=== PATIENT | male | born 1960 | race Caucasian/White ===

== ENCOUNTER 2018-01-19 12:29 | Emergency (ER) | payer MEDICARE, OTHER ==
[2018-01-19 15:25] VITALS: BP 111/71
== END 2018-01-19 15:28 | disposition home or self-care (01) ==
LOC: ED 15:22
DX: R42 Dizziness and giddiness (principal)
CPT/HCPCS: 70450; 99284

== ENCOUNTER 2018-02-06 13:48 | Emergency (ER) | payer MEDICARE ==
[~2018-02-06] VITALS: Ht 152.4 cm; Wt 65.1 kg
[2018-02-06 14:55] LABS: ALBUMIN 3.5 g/dL (3.4-5.0); ANION GAP 9 mmol/L (5-15); CALCIUM 9.1 mg/dL (8.5-10.1); CHLORIDE 106 mmol/L (98-107); CREATININE 1.02 mg/dL (0.7-1.3)
[2018-02-06 15:11] LABS: BASOPHILS # (AUTO) 0.04 x10^3/uL (0-0.1); BASOPHILS % (AUTO) 1 % (0-1); EOSINOPHILS # (AUTO) 0.05 x10^3/uL (0-0.4); EOSINOPHILS % (AUTO) 1 % (1-7); LYMPHOCYTES # (AUTO) 3.07 x10^3/uL (1-3.4); LYMPHOCYTES % (AUTO) 35 % (22-44); MD NO; MEAN CORPUSCULAR HEMOGLOBIN 31.1 pg (27.5-34.5); MEAN CORPUSCULAR HGB CONC 34.5 g/dL (33.2-36.2); MEAN CORPUSCULAR VOLUME 90.2 fL (81-97); MEAN PLATELET VOLUME 8.4 fL (7.4-10.4); MONOCYTES # (AUTO) 0.59 x10^3/uL (0.2-0.8); MONOCYTES % (AUTO) 7 % (2-9); NEUTROPHILS # (AUTO) 5.16 x10^3/uL (1.8-6.8); NEUTROPHILS % (AUTO) 58 % (42-75); PLATELET COUNT 233 x10^3/uL (130-400); RED BLOOD COUNT 5.04 x10^6/uL (4.38-5.82)
[2018-02-06 15:50] VITALS: BP 119/71
== END 2018-02-06 15:52 | disposition home or self-care (01) ==
LOC: ED 15:39
DX: R53.1 Weakness (principal); Z00.01 Encounter for general adult medical examination with abnormal findings; G40.909 Epilepsy, unspecified, not intractable, without status epilepticus; Z86.73 Personal history of transient ischemic attack (TIA), and cerebral infarction without residual deficits; W19.XXXA Unspecified fall, initial encounter; Y93.89 Activity, other specified; Y99.0 Civilian activity done for income or pay; Y92.69 Other specified industrial and construction area as the place of occurrence of the external cause
CPT/HCPCS: 36415; 80048; 82040; 85025; 93005; 99285

== ENCOUNTER 2018-05-04 09:11 | Emergency (ER) | payer MEDICARE ==
[~2018-05-04] VITALS: Ht 157.5 cm; Wt 66.0 kg
[2018-05-04] MEDS ORDERED: ASPI-621 PO (09:46)
[2018-05-04] MEDS ORDERED: CALC-451 PO (09:47)
[2018-05-04] MEDS ORDERED: DIFL5DRO EACHEYE (09:48)
[2018-05-04] MEDS ORDERED: MULT-516 PO (09:49)
[2018-05-04] MEDS ORDERED: LACO200T PO (09:49)
[2018-05-04] MEDS ORDERED: ACET325T14 PO (09:50)
[2018-05-04] MEDS ORDERED: LORA1TAB PO (09:51)
[2018-05-04] MEDS ORDERED: PSEU30TA24 PO (09:52)
[2018-05-04] MEDS ORDERED: GUAI100L6 PO (09:53)
[2018-05-04] MEDS ORDERED: VIT1CAPS42 PO (09:57)
[2018-05-04] MEDS ORDERED: LEVE500T13 PO (09:57)
[2018-05-04] MEDS ORDERED: CA C1TAB29 PO (09:58)
[2018-05-04] MEDS ORDERED: LACO100T PO (09:59)
[2018-05-04 10:40] VITALS: BP 103/65
== END 2018-05-04 10:43 | disposition home or self-care (01) ==
LOC: ED 10:16
DX: S40.011A Contusion of right shoulder, initial encounter (principal); S20.211A Contusion of right front wall of thorax, initial encounter; G40.909 Epilepsy, unspecified, not intractable, without status epilepticus; Z86.73 Personal history of transient ischemic attack (TIA), and cerebral infarction without residual deficits; Z98.890 Other specified postprocedural states; W06.XXXA Fall from bed, initial encounter; Y93.89 Activity, other specified; Y92.092 Bedroom in other non-institutional residence as the place of occurrence of the external cause; Y99.8 Other external cause status
CPT/HCPCS: 71046; 99284

== ENCOUNTER 2018-06-28 10:52 | Inpatient (IN) | payer MEDICARE ==
[~2018-06-28] VITALS: Ht 149.9 cm; Wt 69.8 kg
[~2018-06-28 10:52] MED LIST: ACET325T14 PO; ASPI81TA45 PO; CA C1TAB29 PO; CALC-451 PO; DIFL5DRO EACHEYE; GUAI100L6 PO; LACO100T PO; LACO200T PO; LEVE500T13 PO; LORA1TAB PO; MULT-516 PO; PSEU30TA24 PO; VIT1CAPS42 PO
--- NOTE | 2018-06-28 11:29 | NUR ---
EKG ORDERED D/T POTENTIAL SYNCOPE. BP CUFF, PULSE OX IN PLACE. PT A/O TO NORM PER CAREGIVER. PT UNDRESSED, PLACED IN GOWN. NO WOUNDS OR INJURIES OBSERVED TO BODY.
--- NOTE | 2018-06-28 12:13 | NUR ---
DR YING IN TO SEE PT. AWAITING CT. CAREGIVERS AT BS. VSS/UPDATED IN COMPUTER.
[2018-06-28 12:37] LABS: BASOPHILS # (AUTO) 0.09 x10^3/uL (0-0.1); BASOPHILS % (AUTO) 1 % (0-1); EOSINOPHILS # (AUTO) 0.05 x10^3/uL (0-0.4); EOSINOPHILS % (AUTO) 0 % (1-7); LYMPHOCYTES # (AUTO) 2.44 x10^3/uL (1-3.4); LYMPHOCYTES % (AUTO) 23 % (22-44); MD NO; MEAN CORPUSCULAR VOLUME 91.1 fL (81-97); MEAN PLATELET VOLUME 8.2 fL (7.4-10.4); MONOCYTES # (AUTO) 0.73 x10^3/uL (0.2-0.8); MONOCYTES % (AUTO) 7 % (2-9); NEUTROPHILS # (AUTO) 7.38 x10^3/uL (1.8-6.8); NEUTROPHILS % (AUTO) 69 % (42-75); PLATELET COUNT 248 x10^3/uL (130-400); RED BLOOD COUNT 4.98 x10^6/uL (4.38-5.82); RED CELL DISTRIBUTION WIDTH 13.5 % (9.4-14.8)
[2018-06-28 12:47] LABS: INTERNATIONAL NORMALIZED RATIO 1.02 (0.93-1.1); PROTHROMBIN TIME 10.8 Seconds (9.6-11.5)
[2018-06-28 12:50] LABS: ALBUMIN 3.4 g/dL (3.4-5.0); ANION GAP 8 mmol/L (5-15); CALCIUM 8.7 mg/dL (8.5-10.1); CHLORIDE 115 mmol/L (98-107)
[2018-06-28 12:51] LABS: CREATININE 0.67 mg/dL (0.7-1.3)
--- NOTE | 2018-06-28 14:03 | NUR ---
AWAITING CT SPINE READ. PT IN NAD, CAREGIVERS AT BS.
--- NOTE | 2018-06-28 14:26 | NUR ---
ALL RESULTS BACK, PT FOR RECHECK.
--- NOTE | 2018-06-28 15:38 | NUR ---
CONTINUE TO AWAIT RECHECK BY ERP.
--- NOTE | 2018-06-28 16:02 | NUR ---
CONFER WITH ERP ON ADMIT ORDER. THROUGHPUT NOTIFIED OF ADMIT. CAREGIVERS AND PT UPDATED ON ADMIT AND POC. PT TO STAY NPO UNTIL DR PRATT CONSULT. CAREGIVERS PROVIDED NUMBERS FOR CONSENT OR FURTHER INFORMATION. CAREGIVER: KATIA DAIGLE [phone] BROTHER AND POA: [phone]
--- NOTE | 2018-06-28 16:08 | NUR ---
HEARING AID TAKEN HOME BY CAREGIVER.
--- NOTE | 2018-06-28 16:47 | NUR ---
PT IS SLEEPING VSS UPDATED PT IS WAITING FOR RM ASSIGN
[2018-06-28] MEDS ORDERED: LABETALOL 5MG/ML, 20ML IVPush PRN (17:30)
[2018-06-28] MEDS ORDERED: ONDANSETRON 2MG/ML, 2ML IVPush PRN (17:30)
[2018-06-28] MEDS ORDERED: ONDANSETRON ODT 4 MG PO PRN (17:30)
--- NOTE | 2018-06-28 17:30 | NUR ---
[facility] IN TO SEE PT.
[2018-06-28] MEDS ORDERED: SODIUM CHLORIDE FLUSH 10ML SYR IVF PRN (18:00)
[2018-06-28 18:18] LABS: FREE T4 (FREE THYROXINE) 0.88 ng/dL (0.76-1.46); THYROID STIMULATING HORMONE 2.69 mIU/L (0.358-3.740)
--- NOTE | 2018-06-28 18:26 | NUR ---
IV SL PLACED FOR ADMISSION. REPORT TO ZULMA RN, PT READY FOR TRANSPORT.
[2018-06-28 18:34] LABS: HCT (SEDRATE) 45.3 % (39.2-51.8)
[2018-06-28 19:02] VITALS: BP 113/71
[2018-06-28] MEDS: D5%-0.45% NACL 1,000 ML IV SCH (20:14)
[2018-06-28] MEDS: LACOSAMIDE 100 MG PO SCH (21:00)
[2018-06-28] MEDS: LEVETIRACETAM 500 MG TABLET PO SCH (21:00)
[2018-06-29 00:59] VITALS: BP 100/69
[2018-06-29 05:54] LABS: BASOPHILS # (AUTO) 0.05 x10^3/uL (0-0.1); BASOPHILS % (AUTO) 1 % (0-1); EOSINOPHILS # (AUTO) 0.25 x10^3/uL (0-0.4); EOSINOPHILS % (AUTO) 3 % (1-7); LYMPHOCYTES # (AUTO) 2.78 x10^3/uL (1-3.4); LYMPHOCYTES % (AUTO) 34 % (22-44); MD NO; MEAN CORPUSCULAR HEMOGLOBIN 31.1 pg (27.5-34.5); MEAN CORPUSCULAR HGB CONC 33.9 g/dL (33.2-36.2); MEAN CORPUSCULAR VOLUME 91.7 fL (81-97); MEAN PLATELET VOLUME 8.2 fL (7.4-10.4); MONOCYTES # (AUTO) 0.54 x10^3/uL (0.2-0.8); MONOCYTES % (AUTO) 7 % (2-9); NEUTROPHILS # (AUTO) 4.52 x10^3/uL (1.8-6.8); NEUTROPHILS % (AUTO) 56 % (42-75); PLATELET COUNT 222 x10^3/uL (130-400); RED BLOOD COUNT 4.88 x10^6/uL (4.38-5.82); RED CELL DISTRIBUTION WIDTH 13.7 % (9.4-14.8)
[2018-06-29 07:20] LABS: CHLORIDE 115 mmol/L (98-107)
[2018-06-29 07:35] LABS: ALANINE AMINOTRANSFERASE 20 U/L (12-78); ALBUMIN 2.9 g/dL (3.4-5.0); ALKALINE PHOSPHATASE 166 U/L (45-117); ANION GAP 7 mmol/L (5-15); BILIRUBIN,TOTAL 0.6 mg/dL (0.2-1.0); CALCIUM 8.4 mg/dL (8.5-10.1); CREATININE 0.66 mg/dL (0.7-1.3); TOTAL PROTEIN 5.9 g/dL (6.4-8.2)
[2018-06-29] MEDS: LEVETIRACETAM 500 MG TABLET PO SCH ×2 (08:13→21:07)
[2018-06-29] MEDS: CALCIUM/VITAMIN D3 250-125 TABLET PO SCH (08:13)
[2018-06-29] MEDS: SENNA/DOCUSATE TABLET PO SCH (08:14)
[2018-06-29 08:20] VITALS: BP 146/67
[2018-06-29] MEDS: D5%-0.45% NACL 1,000 ML IV SCH ×2 (08:33→23:34)
[2018-06-29 08:50] VITALS: BP 115/69
[2018-06-29 14:50] VITALS: BP 110/76
[2018-06-29 19:06] VITALS: BP 120/75
[2018-06-29] MEDS: LACOSAMIDE 100 MG PO SCH (21:00)
[2018-06-30 01:23] VITALS: BP 117/72
[2018-06-30 06:09] LABS: BASOPHILS # (AUTO) 0.05 x10^3/uL (0-0.1); BASOPHILS % (AUTO) 1 % (0-1); EOSINOPHILS # (AUTO) 0.23 x10^3/uL (0-0.4); EOSINOPHILS % (AUTO) 3 % (1-7); LYMPHOCYTES # (AUTO) 2.35 x10^3/uL (1-3.4); LYMPHOCYTES % (AUTO) 27 % (22-44); MD NO; MEAN CORPUSCULAR HEMOGLOBIN 31.1 pg (27.5-34.5); MEAN CORPUSCULAR HGB CONC 33.9 g/dL (33.2-36.2); MEAN CORPUSCULAR VOLUME 91.6 fL (81-97); MEAN PLATELET VOLUME 8.3 fL (7.4-10.4); MONOCYTES # (AUTO) 0.55 x10^3/uL (0.2-0.8); MONOCYTES % (AUTO) 7 % (2-9); NEUTROPHILS # (AUTO) 5.39 x10^3/uL (1.8-6.8); NEUTROPHILS % (AUTO) 63 % (42-75); PLATELET COUNT 226 x10^3/uL (130-400); RED BLOOD COUNT 4.88 x10^6/uL (4.38-5.82); RED CELL DISTRIBUTION WIDTH 13.5 % (9.4-14.8)
[2018-06-30 06:16] LABS: CHLORIDE 112 mmol/L (98-107)
[2018-06-30 06:53] LABS: ALANINE AMINOTRANSFERASE 20 U/L (12-78); ALBUMIN 2.9 g/dL (3.4-5.0); ALKALINE PHOSPHATASE 168 U/L (45-117); ANION GAP 8 mmol/L (5-15); BILIRUBIN,TOTAL 0.6 mg/dL (0.2-1.0); CALCIUM 8.1 mg/dL (8.5-10.1)
[2018-06-30] MEDS: SENNA/DOCUSATE TABLET PO SCH (08:00)
[2018-06-30] MEDS ORDERED: POTASSIUM CHLORIDE 20 MEQ TAB.ER.PRT PO ONE (08:30)
[2018-06-30] MEDS: LEVETIRACETAM 500 MG TABLET PO SCH ×2 (08:42→20:42)
[2018-06-30] MEDS: CALCIUM/VITAMIN D3 250-125 TABLET PO SCH (08:42)
[2018-06-30 09:10] VITALS: BP 120/69
[2018-06-30] MEDS: D5%-0.45% NACL 1,000 ML IV SCH (12:35)
[2018-06-30 13:33] VITALS: BP 112/78
[2018-06-30 19:04] VITALS: BP 121/79
[2018-06-30] MEDS: LACOSAMIDE 100 MG PO SCH (20:41)
[2018-07-01 02:00] VITALS: BP_SYST 104; BP_SYST 105; BP_SYST 107; BP_DIAS 72
[2018-07-01 05:19] LABS: BASOPHILS # (AUTO) 0.03 x10^3/uL (0-0.1); BASOPHILS % (AUTO) 0 % (0-1); EOSINOPHILS # (AUTO) 0.26 x10^3/uL (0-0.4); EOSINOPHILS % (AUTO) 3 % (1-7); LYMPHOCYTES # (AUTO) 2.83 x10^3/uL (1-3.4); LYMPHOCYTES % (AUTO) 31 % (22-44); MD NO; MEAN CORPUSCULAR HEMOGLOBIN 31.6 pg (27.5-34.5); MEAN CORPUSCULAR HGB CONC 34.1 g/dL (33.2-36.2); MEAN CORPUSCULAR VOLUME 92.8 fL (81-97); MEAN PLATELET VOLUME 8.4 fL (7.4-10.4); MONOCYTES # (AUTO) 0.68 x10^3/uL (0.2-0.8); MONOCYTES % (AUTO) 7 % (2-9); NEUTROPHILS # (AUTO) 5.44 x10^3/uL (1.8-6.8); NEUTROPHILS % (AUTO) 59 % (42-75); PLATELET COUNT 229 x10^3/uL (130-400); RED BLOOD COUNT 5.08 x10^6/uL (4.38-5.82); RED CELL DISTRIBUTION WIDTH 13.6 % (9.4-14.8)
[2018-07-01 05:24] LABS: ANION GAP 6 mmol/L (5-15); CALCIUM 8.4 mg/dL (8.5-10.1); CHLORIDE 109 mmol/L (98-107)
[2018-07-01 05:29] LABS: ALANINE AMINOTRANSFERASE 27 U/L (12-78); ALKALINE PHOSPHATASE 180 U/L (45-117); BILIRUBIN,TOTAL 0.5 mg/dL (0.2-1.0); TOTAL PROTEIN 6.3 g/dL (6.4-8.2)
[2018-07-01 08:26] VITALS: BP 119/74
[2018-07-01] MEDS: CALCIUM/VITAMIN D3 250-125 TABLET PO SCH (08:38)
[2018-07-01] MEDS: SENNA/DOCUSATE TABLET PO SCH (08:38)
[2018-07-01] MEDS: LEVETIRACETAM 500 MG TABLET PO SCH ×2 (08:38→20:53)
[2018-07-01 14:42] VITALS: BP 117/78
[2018-07-01 18:58] VITALS: BP 116/71
[2018-07-01] MEDS: LACOSAMIDE 100 MG PO SCH (20:47)
[2018-07-02 01:24] VITALS: BP 113/68
[2018-07-02 06:23] LABS: BASOPHILS # (AUTO) 0.04 x10^3/uL (0-0.1); BASOPHILS % (AUTO) 1 % (0-1); EOSINOPHILS # (AUTO) 0.22 x10^3/uL (0-0.4); EOSINOPHILS % (AUTO) 3 % (1-7); LYMPHOCYTES # (AUTO) 2.81 x10^3/uL (1-3.4); LYMPHOCYTES % (AUTO) 36 % (22-44); MD NO; MEAN CORPUSCULAR HEMOGLOBIN 31.6 pg (27.5-34.5); MEAN CORPUSCULAR HGB CONC 34.6 g/dL (33.2-36.2); MEAN CORPUSCULAR VOLUME 91.3 fL (81-97); MEAN PLATELET VOLUME 8.3 fL (7.4-10.4); MONOCYTES # (AUTO) 0.46 x10^3/uL (0.2-0.8); MONOCYTES % (AUTO) 6 % (2-9); NEUTROPHILS # (AUTO) 4.28 x10^3/uL (1.8-6.8); NEUTROPHILS % (AUTO) 55 % (42-75); PLATELET COUNT 223 x10^3/uL (130-400); RED BLOOD COUNT 5.03 x10^6/uL (4.38-5.82); RED CELL DISTRIBUTION WIDTH 13.5 % (9.4-14.8)
[2018-07-02 06:29] LABS: ALBUMIN 2.9 g/dL (3.4-5.0); ANION GAP 6 mmol/L (5-15); CALCIUM 8.5 mg/dL (8.5-10.1); CHLORIDE 108 mmol/L (98-107)
[2018-07-02 06:30] LABS: CREATININE 0.57 mg/dL (0.7-1.3)
[2018-07-02 06:34] VITALS: BP 108/72
[2018-07-02] MEDS: LEVETIRACETAM 500 MG TABLET PO SCH ×2 (08:35→21:08)
[2018-07-02] MEDS: CALCIUM/VITAMIN D3 250-125 TABLET PO SCH (08:35)
[2018-07-02] MEDS: SENNA/DOCUSATE TABLET PO SCH (08:35)
[2018-07-02 13:36] VITALS: BP 104/62
[2018-07-02 19:05] VITALS: BP 105/66
[2018-07-02] MEDS: LACOSAMIDE 100 MG PO SCH (21:00)
[2018-07-03 01:29] VITALS: BP 114/78
[2018-07-03 06:10] LABS: ALBUMIN 2.9 g/dL (3.4-5.0); ANION GAP 6 mmol/L (5-15); CALCIUM 8.5 mg/dL (8.5-10.1); CHLORIDE 107 mmol/L (98-107); CREATININE 0.57 mg/dL (0.7-1.3)
[2018-07-03 06:13] LABS: BASOPHILS # (AUTO) 0.05 x10^3/uL (0-0.1); BASOPHILS % (AUTO) 1 % (0-1); EOSINOPHILS # (AUTO) 0.23 x10^3/uL (0-0.4); EOSINOPHILS % (AUTO) 3 % (1-7); LYMPHOCYTES # (AUTO) 2.92 x10^3/uL (1-3.4); LYMPHOCYTES % (AUTO) 36 % (22-44); MD NO; MEAN CORPUSCULAR HEMOGLOBIN 31.1 pg (27.5-34.5); MEAN CORPUSCULAR HGB CONC 33.7 g/dL (33.2-36.2); MEAN CORPUSCULAR VOLUME 92.2 fL (81-97); MEAN PLATELET VOLUME 8.4 fL (7.4-10.4); MONOCYTES # (AUTO) 0.48 x10^3/uL (0.2-0.8); MONOCYTES % (AUTO) 6 % (2-9); NEUTROPHILS # (AUTO) 4.51 x10^3/uL (1.8-6.8); NEUTROPHILS % (AUTO) 55 % (42-75); PLATELET COUNT 228 x10^3/uL (130-400); RED BLOOD COUNT 4.97 x10^6/uL (4.38-5.82); RED CELL DISTRIBUTION WIDTH 13.1 % (9.4-14.8)
[2018-07-03 06:42] VITALS: BP 103/68
[2018-07-03] MEDS: LEVETIRACETAM 500 MG TABLET PO SCH (09:08)
[2018-07-03] MEDS: CALCIUM/VITAMIN D3 250-125 TABLET PO SCH (09:08)
[2018-07-03] MEDS: SENNA/DOCUSATE TABLET PO SCH (09:08)
[2018-07-03 12:13] VITALS: BP 114/74
== END 2018-07-03 18:05 | disposition home or self-care (01) | DRG 73 ==
LOC: ED 14:53 → EDIP 17:05 → 4EST 18:55
PROVIDERS: ADMIT Internal Medicine; ATTEND Internal Medicine
DX: G90.8 Other disorders of autonomic nervous system (principal); J96.01 Acute respiratory failure with hypoxia; S02.40EA Zygomatic fracture, right side, initial encounter for closed fracture; S02.31XA Fracture of orbital floor, right side, initial encounter for closed fracture; S02.401A Maxillary fracture, unspecified side, initial encounter for closed fracture; G83.84 Todd's paralysis (postepileptic); G40.909 Epilepsy, unspecified, not intractable, without status epilepticus; G80.9 Cerebral palsy, unspecified; G93.89 Other specified disorders of brain; H54.7 Unspecified visual loss; H91.90 Unspecified hearing loss, unspecified ear; I10 Essential (primary) hypertension; R13.10 Dysphagia, unspecified; S42.009A Fracture of unspecified part of unspecified clavicle, initial encounter for closed fracture; W18.30XA Fall on same level, unspecified, initial encounter; Z86.73 Personal history of transient ischemic attack (TIA), and cerebral infarction without residual deficits; Y93.89 Activity, other specified; Y92.89 Other specified places as the place of occurrence of the external cause; Z88.8 Allergy status to other drugs, medicaments and biological substances
CPT/HCPCS: 36415; 70450; 70486; 71045; 72125; 74230; 80048; 80053; 82040; 83735; 84100; 84439; 84443; 85025; 85610; 85651; 85730; 93005; 93306; 99285; G0378; 92523-GN

== ENCOUNTER 2018-11-11 09:26 | Inpatient (IN) | payer MEDICARE ==
[~2018-11-11] VITALS: Ht 177.8 cm; Wt 71.5 kg
[~2018-11-11 09:26] MED LIST changes: -LEVE500T13 PO; +LEVE500T22 PO
--- NOTE | 2018-11-11 09:42 | NUR ---
PT BIB [facility] Per EMS: pt fell out of bed at 0800; pt does not follow commands; is non verbal except for moans; pt has a hx of brain tumor, seizures, CVA. pt did not withdrawl to palpation during physical exam performed by ED MD.
[2018-11-11 10:03] LABS: BASOPHILS # (AUTO) 0.04 x10^3/uL (0-0.1); BASOPHILS % (AUTO) 0 % (0-1); EOSINOPHILS # (AUTO) 0.11 x10^3/uL (0-0.4); EOSINOPHILS % (AUTO) 1 % (1-7); LYMPHOCYTES # (AUTO) 2.62 x10^3/uL (1-3.4); LYMPHOCYTES % (AUTO) 32 % (22-44); MD NO; MEAN CORPUSCULAR HEMOGLOBIN 29.6 pg (27.5-34.5); MEAN CORPUSCULAR HGB CONC 32.2 g/dL (33.2-36.2); MEAN PLATELET VOLUME 8.4 fL (7.4-10.4); MONOCYTES # (AUTO) 0.51 x10^3/uL (0.2-0.8); MONOCYTES % (AUTO) 6 % (2-9); NEUTROPHILS % (AUTO) 60 % (42-75); PLATELET COUNT 224 x10^3/uL (130-400); RED BLOOD COUNT 5.17 x10^6/uL (4.38-5.82); RED CELL DISTRIBUTION WIDTH 13.7 % (9.4-14.8)
[2018-11-11 10:14] LABS: ALBUMIN 3.3 g/dL (3.4-5.0); ANION GAP 6 mmol/L (5-15); CALCIUM 8.9 mg/dL (8.5-10.1); CHLORIDE 114 mmol/L (98-107)
--- NOTE | 2018-11-11 10:32 | NUR ---
Employees from [facility] are at bedside. They report that intermittant tremmors are new and they report that the mental status has declined from normal.
[2018-11-11 11:10] LABS: INTERNATIONAL NORMALIZED RATIO 0.99 (0.93-1.1); PROTHROMBIN TIME 10.4 Seconds (9.6-11.5)
--- NOTE | 2018-11-11 11:18 | NUR ---
PT sleeping on gurnapa. pt was straight cath'ed and recieved procedure well. specimen walked to lab.
[2018-11-11 11:36] LABS: MICROSCOPIC AUTO
[2018-11-11 11:45] LABS: CULTURE INDICATED? YES
--- NOTE | 2018-11-11 12:37 | NUR ---
BREAK RN - PT RESTING ON LO JAUREGUI UP X 2. VSS. FAMILY AT BEDSIDE. ALL RESULTS BACK AT THIS TIME.
--- NOTE | 2018-11-11 13:49 | NUR ---
[facility] at bedside to evaluate pt for admission. Pt continues resting in bed, no changes in condition, NADN.
[2018-11-11] MEDS ORDERED: ACETAMINOPHEN 325 MG TABLET PO PRN (14:00)
--- NOTE | 2018-11-11 15:29 | NUR ---
report given to DAI Adam on tele 2
[2018-11-11] MEDS: DIFLUPREDNATE EACHEYE SCH ×2 (16:00→20:59)
[2018-11-11] MEDS: SODIUM CHLORIDE 0.9% 1,000 ML IV SCH (16:47)
[2018-11-11 17:00] VITALS: BP 103/72
[2018-11-11] MEDS: LEVETIRACETAM 500 MG in SODIUM CHLORIDE 0.9% 100 ML IV SCH (18:09)
[2018-11-11 18:58] VITALS: BP 105/70
[2018-11-11] MEDS ORDERED: LEVETIRACETAM 500 MG TABLET PO SCH (21:00)
[2018-11-11] MEDS: LACOSAMIDE 50 MG TABLET PO SCH (21:00)
[2018-11-12 00:49] VITALS: BP 134/84
[2018-11-12 02:47] LABS: BASOPHILS # (AUTO) 0.04 x10^3/uL (0-0.1); BASOPHILS % (AUTO) 0 % (0-1); EOSINOPHILS % (AUTO) 0 % (1-7); LYMPHOCYTES # (AUTO) 1.36 x10^3/uL (1-3.4); LYMPHOCYTES % (AUTO) 13 % (22-44); MD NO; MEAN CORPUSCULAR HEMOGLOBIN 30.5 pg (27.5-34.5); MEAN CORPUSCULAR HGB CONC 33.3 g/dL (33.2-36.2); MEAN CORPUSCULAR VOLUME 91.6 fL (81-97); MEAN PLATELET VOLUME 8.4 fL (7.4-10.4); MONOCYTES % (AUTO) 7 % (2-9); NEUTROPHILS # (AUTO) 8.55 x10^3/uL (1.8-6.8); NEUTROPHILS % (AUTO) 80 % (42-75); PLATELET COUNT 242 x10^3/uL (130-400); RED BLOOD COUNT 5.08 x10^6/uL (4.38-5.82); RED CELL DISTRIBUTION WIDTH 13.6 % (9.4-14.8)
[2018-11-12 02:59] LABS: ANION GAP 10 mmol/L (5-15); CALCIUM 8.3 mg/dL (8.5-10.1); CHLORIDE 113 mmol/L (98-107); CREATININE 0.66 mg/dL (0.7-1.3)
[2018-11-12] MEDS: SODIUM CHLORIDE 0.9% 1,000 ML IV SCH ×2 (05:37→19:58)
[2018-11-12] MEDS: LEVETIRACETAM 500 MG in SODIUM CHLORIDE 0.9% 100 ML IV SCH ×2 (05:37→18:44)
[2018-11-12 08:09] VITALS: BP 120/79
[2018-11-12] MEDS ORDERED: POTASSIUM CHLORIDE 20 MEQ in SODIUM CHLORIDE 0.9% 250 ML IV ONE (08:30)
[2018-11-12] MEDS: DIFLUPREDNATE EACHEYE SCH ×3 (09:00→20:00)
[2018-11-12] MEDS: LACOSAMIDE 50 MG TABLET PO SCH ×2 (09:00→20:01)
[2018-11-12] MEDS: MULTIVITAMIN 1 TABLET PO SCH (09:00)
[2018-11-12 15:10] VITALS: BP 138/76
--- NOTE | 2018-11-12 17:13 | NUR ---
REC NPO; swallow precautions sheet posted at bedside Addendum: 11/12/18 at [address] Amended: Links added.
[2018-11-12 19:05] VITALS: BP 132/74
[2018-11-13 00:56] VITALS: BP 127/68
[2018-11-13 05:15] LABS: BASOPHILS # (AUTO) 0.06 x10^3/uL (0-0.1); BASOPHILS % (AUTO) 1 % (0-1); EOSINOPHILS # (AUTO) 0.03 x10^3/uL (0-0.4); EOSINOPHILS % (AUTO) 0 % (1-7); LYMPHOCYTES # (AUTO) 2.09 x10^3/uL (1-3.4); LYMPHOCYTES % (AUTO) 22 % (22-44); MD NO; MEAN CORPUSCULAR HEMOGLOBIN 30.3 pg (27.5-34.5); MEAN CORPUSCULAR HGB CONC 32.7 g/dL (33.2-36.2); MEAN CORPUSCULAR VOLUME 92.5 fL (81-97); MEAN PLATELET VOLUME 8.6 fL (7.4-10.4); MONOCYTES # (AUTO) 0.71 x10^3/uL (0.2-0.8); MONOCYTES % (AUTO) 7 % (2-9); NEUTROPHILS # (AUTO) 6.79 x10^3/uL (1.8-6.8); NEUTROPHILS % (AUTO) 70 % (42-75); PLATELET COUNT 199 x10^3/uL (130-400); RED BLOOD COUNT 4.66 x10^6/uL (4.38-5.82); RED CELL DISTRIBUTION WIDTH 13.7 % (9.4-14.8)
[2018-11-13] MEDS: SODIUM CHLORIDE 0.9% 1,000 ML IV SCH ×2 (05:35→16:00)
[2018-11-13] MEDS: LEVETIRACETAM 500 MG in SODIUM CHLORIDE 0.9% 100 ML IV SCH ×2 (05:35→18:19)
[2018-11-13 05:38] LABS: CHLORIDE 115 mmol/L (98-107)
[2018-11-13 05:42] LABS: ANION GAP 7 mmol/L (5-15); CALCIUM 7.7 mg/dL (8.5-10.1)
[2018-11-13 06:48] VITALS: BP 110/75
[2018-11-13] MEDS: LACOSAMIDE 50 MG TABLET PO SCH ×2 (08:34→21:17)
[2018-11-13] MEDS: MULTIVITAMIN 1 TABLET PO SCH (08:34)
[2018-11-13] MEDS: DIFLUPREDNATE EACHEYE SCH ×3 (08:47→21:00)
[2018-11-13 12:19] LABS: ALBUMIN 2.4 g/dL (3.4-5.0); BILIRUBIN, DIRECT 0.1 mg/dL (0.1-0.2)
[2018-11-13 12:20] LABS: BILIRUBIN,INDIRECT 0.2 mg/dL (0.0-2.0); BILIRUBIN,TOTAL 0.3 mg/dL (0.2-1.0); TOTAL PROTEIN 5.4 g/dL (6.4-8.2)
[2018-11-13 13:15] VITALS: BP 103/70
[2018-11-13 19:46] VITALS: BP 98/67
[2018-11-14 01:16] VITALS: BP 103/74
[2018-11-14] MEDS: SODIUM CHLORIDE 0.9% 1,000 ML IV SCH ×3 (02:13→22:19)
[2018-11-14] MEDS: LEVETIRACETAM 500 MG in SODIUM CHLORIDE 0.9% 100 ML IV SCH ×2 (06:08→17:57)
[2018-11-14 07:22] VITALS: BP 106/69
[2018-11-14 08:16] LABS: BASOPHILS # (AUTO) 0.04 x10^3/uL (0-0.1); BASOPHILS % (AUTO) 1 % (0-1); EOSINOPHILS # (AUTO) 0.13 x10^3/uL (0-0.4); EOSINOPHILS % (AUTO) 2 % (1-7); LYMPHOCYTES # (AUTO) 1.97 x10^3/uL (1-3.4); LYMPHOCYTES % (AUTO) 25 % (22-44); MD NO; MEAN CORPUSCULAR HEMOGLOBIN 30.2 pg (27.5-34.5); MEAN CORPUSCULAR HGB CONC 32.8 g/dL (33.2-36.2); MEAN CORPUSCULAR VOLUME 92.2 fL (81-97); MEAN PLATELET VOLUME 8.1 fL (7.4-10.4); MONOCYTES # (AUTO) 0.55 x10^3/uL (0.2-0.8); MONOCYTES % (AUTO) 7 % (2-9); NEUTROPHILS # (AUTO) 5.15 x10^3/uL (1.8-6.8); NEUTROPHILS % (AUTO) 66 % (42-75); PLATELET COUNT 191 x10^3/uL (130-400); RED BLOOD COUNT 4.43 x10^6/uL (4.38-5.82); RED CELL DISTRIBUTION WIDTH 13.4 % (9.4-14.8)
[2018-11-14 08:27] LABS: ALBUMIN 2.3 g/dL (3.4-5.0); ANION GAP 8 mmol/L (5-15); CALCIUM 7.6 mg/dL (8.5-10.1); CHLORIDE 113 mmol/L (98-107)
[2018-11-14 08:30] LABS: ALANINE AMINOTRANSFERASE 21 U/L (12-78); ALKALINE PHOSPHATASE 145 U/L (45-117); BILIRUBIN,TOTAL 0.5 mg/dL (0.2-1.0); TOTAL PROTEIN 5.1 g/dL (6.4-8.2)
[2018-11-14] MEDS: LACOSAMIDE 50 MG TABLET PO SCH ×2 (09:00→22:16)
[2018-11-14] MEDS: MULTIVITAMIN 1 TABLET PO SCH (09:00)
[2018-11-14] MEDS: POTASSIUM CHLORIDE 20 MEQ PACKET PO ONE ×2 (14:00→16:38)
[2018-11-14 14:50] VITALS: BP 103/72
[2018-11-14] MEDS: DIFLUPREDNATE EACHEYE SCH ×2 (16:00→21:00)
[2018-11-14 19:34] VITALS: BP 112/72
[2018-11-14] MEDS ORDERED: POTASSIUM CHLORIDE 20 MEQ PACKET PO ONE (22:00)
[2018-11-15 02:08] VITALS: BP 112/76
[2018-11-15] MEDS: LEVETIRACETAM 500 MG in SODIUM CHLORIDE 0.9% 100 ML IV SCH ×2 (05:54→17:56)
[2018-11-15 06:43] VITALS: BP 117/72
[2018-11-15 06:52] LABS: ANION GAP 5 mmol/L (5-15); CHLORIDE 109 mmol/L (98-107); CREATININE 0.46 mg/dL (0.7-1.3)
[2018-11-15 08:18] LABS: BASOPHILS # (AUTO) 0.03 x10^3/uL (0-0.1); BASOPHILS % (AUTO) 0 % (0-1); EOSINOPHILS # (AUTO) 0.11 x10^3/uL (0-0.4); EOSINOPHILS % (AUTO) 1 % (1-7); LYMPHOCYTES # (AUTO) 1.81 x10^3/uL (1-3.4); LYMPHOCYTES % (AUTO) 22 % (22-44); MD NO; MEAN CORPUSCULAR HEMOGLOBIN 29.2 pg (27.5-34.5); MEAN CORPUSCULAR HGB CONC 31.8 g/dL (33.2-36.2); MEAN CORPUSCULAR VOLUME 91.9 fL (81-97); MEAN PLATELET VOLUME 8.1 fL (7.4-10.4); MONOCYTES # (AUTO) 0.57 x10^3/uL (0.2-0.8); MONOCYTES % (AUTO) 7 % (2-9); NEUTROPHILS # (AUTO) 5.88 x10^3/uL (1.8-6.8); NEUTROPHILS % (AUTO) 70 % (42-75); PLATELET COUNT 205 x10^3/uL (130-400); RED BLOOD COUNT 4.95 x10^6/uL (4.38-5.82); RED CELL DISTRIBUTION WIDTH 13.3 % (9.4-14.8)
[2018-11-15] MEDS: SODIUM CHLORIDE 0.9% 1,000 ML IV SCH ×2 (08:54→17:56)
[2018-11-15] MEDS ORDERED: LACOSAMIDE 50 MG TABLET PO SCH ×2 (09:00→13:25)
[2018-11-15] MEDS: DIFLUPREDNATE EACHEYE SCH ×3 (09:00→21:27)
[2018-11-15] MEDS: MULTIVITAMIN 1 TABLET PO SCH (09:00)
[2018-11-15 14:20] VITALS: BP 109/68
[2018-11-15 14:35] VITALS: BP 119/76
[2018-11-15 19:53] VITALS: BP 113/70
[2018-11-15] MEDS: LACOSAMIDE 50 MG TABLET PO SCH (21:27)
[2018-11-16 01:35] VITALS: BP 118/74
[2018-11-16] MEDS: SODIUM CHLORIDE 0.9% 1,000 ML IV SCH (04:47)
[2018-11-16] MEDS: LEVETIRACETAM 500 MG in SODIUM CHLORIDE 0.9% 100 ML IV SCH (06:17)
[2018-11-16 08:00] VITALS: BP 117/78
[2018-11-16] MEDS ORDERED: MULTIVIT-MINERALS/IRON ORAL SOL PO SCH (09:00)
[2018-11-16] MEDS ORDERED: LACOSAMIDE 50 MG in SODIUM CHLORIDE 0.9% 100 ML IV SCH (10:30)
[2018-11-16] MEDS: DIFLUPREDNATE EACHEYE SCH (11:17)
== END 2018-11-16 15:02 | disposition hospice, home (50) | DRG 85 ==
LOC: ED 11:03 → EDIP 13:17 → 4WST 16:19
PROVIDERS: ADMIT Internal Medicine; ATTEND Internal Medicine
PROC: 0T9B70Z Drainage of Bladder with Drainage Device, Via Natural or Artificial Opening (ICD-10-PCS; principal; 2018-11-11)
DX: S06.5X0A Traumatic subdural hemorrhage without loss of consciousness, initial encounter (principal); G93.41 Metabolic encephalopathy; G83.84 Todd's paralysis (postepileptic); G93.89 Other specified disorders of brain; R40.2421 Glasgow coma scale score 9-12, in the field [EMT or ambulance]; G40.909 Epilepsy, unspecified, not intractable, without status epilepticus; G80.9 Cerebral palsy, unspecified; H54.61 Unqualified visual loss, right eye, normal vision left eye; Z51.5 Encounter for palliative care; Z66 Do not resuscitate; H91.91 Unspecified hearing loss, right ear; W06.XXXA Fall from bed, initial encounter; Y92.003 Bedroom of unspecified non-institutional (private) residence as the place of occurrence of the external cause; Y93.89 Activity, other specified; Y99.8 Other external cause status; Z74.01 Bed confinement status; Z86.73 Personal history of transient ischemic attack (TIA), and cerebral infarction without residual deficits
CPT/HCPCS: 36415; 70450; 71045; 72125; 74018; 80048; 80053; 80076; 81001; 82040; 82140; 85025; 85520; 85610; 85730; 87086; 93005; 95819; 99285; C9254; G0378; J1953; J3480; J7030; J7050